=== PATIENT | male | born 1980 | race Caucasian/White ===

== ENCOUNTER 2017-05-10 11:53 | Emergency (ER) | payer SELFPAY ==
[~2017-05-10] VITALS: Ht 167.6 cm; Wt 70.5 kg
[2017-05-10 11:57] VITALS: BP 169/98; PULSE 71; RESP 13; TEMP 98.8; O2SAT 99
[2017-05-10] MEDS ORDERED: ERYTOIN10 RIGHT EYE (12:43)
--- NOTE | 2017-05-10 12:51 | PD ---
HPI Chief Complaint: Eye Problems/Injury Time Seen by Provider: 12:25 Travel History International Travel<30 days: No Contact w/Intl Traveler<30days: No Traveled to known affect area: No History of Present Illness HPI 37-year-old male presents to the emergency room for evaluation of right eye foreign body sensation for the past 2 days. Patient was playing paintball with his friends when somebody shot at his right eye. He was wearing a mask but it broke and he is concerned some paint got into his eye. He immediately flushed out with a large saline eye wash and did not see any foreign bodies. He woke up following morning with some drainage but has not had any since. States he has persistent right eye foreign body sensation and redness. Denies any significant pain or changes in visual acuity. No photophobia. PFSH Social History Tobacco Use: Yes Allergies-Medications (Allergen,Severity, Reaction): Coded Allergies: No Known Allergies (Unverified , 05/10/17) Reported Meds & Prescriptions Reported Meds & Active Scripts Active Erythromycin Opth Oint 5 Mg/Gm Oint 1 Applic RIGHT EYE QID Review of Systems Except as stated in HPI: all other systems reviewed are Neg Physical Exam Narrative GENERAL: Well-nourished, well-developed male in no acute distress. Afebrile. Ambulatory. SKIN: Focused skin assessment warm/dry. Mild periorbital ecchymosis of the right eye. HEAD: Normocephalic. EYES: PERRL, EOMI without pain. Moderate injection of the right eye without any drainage. No scleral icterus. Visual acuity is 20/30 in the right and 20/ 15 in the left. Fluorescein staining reveals a less than 1 mm corneal abrasion at the 2 o'clock position of the right eye. Negative Aries sign. Lid eversion reveals no foreign body. NECK: Supple, trachea midline. No JVD or lymphadenopathy. CARDIOVASCULAR: Regular rate and rhythm without murmurs, gallops, or rubs. RESPIRATORY: Breath sounds equal bilaterally. No accessory muscle use. PSYCHIATRIC: No delusional thought processes. No hallucinations. Data Data Last Documented VS Vital Signs Date Time Temp Pulse Resp B/P (MAP) Pulse Ox O2 Delivery O2 Flow Rate FiO2 05/10/17 11:57 98.8 71 13 169/98 (121) 99 MDM Medical Decision Making Medical Screen Exam Complete: Yes Emergency Medical Condition: Yes Medical Record Reviewed: Yes Differential Diagnosis Corneal abrasion, ulceration, foreign body Narrative Course 37-year-old male presents to the emergency room for evaluation of right eye foreign body sensation and redness for the past 2 days. Patient got hit in the face mask with a paintball which broke the mask. He had immediate foreign body sensation and flushed it out with a large thing of saline. Physical exam reveals moderate injection of the right eye without any drainage. EOMI without pain. Mild right-sided periorbital ecchymosis. Visual acuity is 20/30 in the right and 20/15 in the left. Fluorescein staining reveals a small, less than 1 mm corneal abrasion at the 2 o'clock position. Negative Aries sign. No obvious foreign body. Patient was discharged with prescription for erythromycin eye ointment and told to follow-up with an communication assistant or return for worsening symptoms. He understands and agrees to plan. Diagnosis Primary Impression: Right corneal abrasion Qualified Codes: S05.01XA - Injury of conjunctiva and corneal abrasion without foreign body, right eye, initial encounter Referrals: Primary Care Physician Additional Instructions: Apply 4 times daily for 3-5 days. If symptoms persist after 3 days, see an communication assistant. Return for worsening symptoms as needed. Med/Other Pt SpecificInfo: Prescription(s) given Scripts Erythromycin Opth Oint (Erythromycin Opth Oint) 5 Mg/Gm Oint 1 APPLIC RIGHT EYE QID for Infection, #1 TUBE 0 Refills Prov: Miriam Stevens 05/10/17 Disposition: 01 DISCHARGE HOME Condition: Stable Bridget Montez May 10, 2017 12:51
== END 2017-05-10 13:05 | disposition home or self-care (01) ==
LOC: NEPK 11:53
DX: S05.01XA Injury of conjunctiva and corneal abrasion without foreign body, right eye, initial encounter (principal); W21.09XA Struck by other hit or thrown ball, initial encounter; Y93.69 Activity, other involving other sports and athletics played as a team or group
CPT/HCPCS: 99283